=== PATIENT | female | born 1955 | race Two or more races ===

== ENCOUNTER 2017-07-26 08:28 | Day surgery (SDC) | payer MEDICAID ==
[2017-07-26] VITALS (9 sets, daily range): BP systolic 115–130; BP diastolic 56–78
[~2017-07-26] VITALS: Ht 157.5 cm; Wt 72.6 kg
[~2017-07-26 08:28] MED LIST: CALCIUM CITRATE PO; FISH OIL500 MG PO; FLAX OIL1000 MG PO; MULTIVITAMINS1 EAC8 PO; TAMOXIFEN CITRA10 MG PO; TENORMIN25 MG PO; VIT D3 PO
[2017-07-26] MEDS ORDERED: Lidocaine 1% MPF 10mg/ml 5ml ONE (08:29)
[2017-07-26] MEDS ORDERED: Propofol 200mg/20ml IV ONE (08:29)
[2017-07-26] MEDS ORDERED: NS 500ML ONE (08:29)
--- NOTE | 2017-07-26 08:47 | Anethesia Preoperative Eval ---
Anesthesia Pre-op PMH/ROS General Date of Evaluation: Jul 26, 2017 Time of Evaluation: 08:45 Anesthesiologist: juan ASA Score: ASA 3 Mallampati Score Class I : Soft palate, uvula, fauces, pillars visible Class II: Soft palate, uvula, fauces visible Class III: Soft palate, base of uvula visible Class IV: Only hard plate visible Mallampati Classification: Class II Surgeon: alan Diagnosis: gerd/colon screening Surgical Procedure: egd/colonoscopy Anesthesia History: none - egd/colonoscopy Social History: smoking - nonsmoker, alcohol use Family History: no anesthesia problems Allergies: Coded Allergies: No Known Allergies (Unverified , 05/18/12) Medications: see eMAR Past Medical History Cardiovascular: Reports: HTN, arrhythmia Gastrointestinal/Genitourinary: Reports: GERD, other - gastritis Neurologic/Psychiatric: Reports: depression/anxiety Hematology/Immune: Reports: other - breast cancer Anesthesia Pre-op Phys. Exam Physician Exam Last Vital Signs Date Time Temp Pulse Resp B/P (MAP) Pulse Ox O2 Delivery O2 Flow Rate FiO2 07/26/17 09:29 97.5 68 18 120/78 97 Room Air 97.5 Constitutional: NAD Neurologic: CN 2-12 intact Cardiovascular: RRR Respiratory: CTA Gastrointestinal: S/NT/ND Airway Exam Mallampati Score: Class II MO: limited Neck: supple TMD: 2fb ROM: full Teeth: intact Anesthesia Pre-op A/P Studies Pre-op Studies: EKG - nsr Risk Assessment & Plan Assessment: asa3 Plan: mac Status Change Before Surgery: No Pre-Antibiotics Drug: ANGELA Thomas Jul 26, 2017 08:47
[2017-07-26] MEDS ORDERED: Atropine Inj 1mg/10ml Syr IV PRN (09:00)
[2017-07-26] MEDS ORDERED: Midazolam 2mg/2ml Inj IVP PRN (09:00)
[2017-07-26] MEDS ORDERED: DiphenhydrAMINE 50mg/ml Inj IVP PRN (09:00)
[2017-07-26] MEDS ORDERED: fentaNYL 100 mcg/2 mL IV PRN (09:00)
[2017-07-26] MEDS ORDERED: LIPITOR20 MG ORAL (09:33)
--- NOTE | 2017-07-26 10:15 | Pre-Procedure Note/Attestation ---
Pre-Procedure Note/Attestation Complete Prior to Procedure Planned Procedure: not applicable Procedure Narrative: egd/colonoscopy Indications for Procedure Pre-Operative Diagnosis: GERD, screening colon Attestation I attest that I discussed the nature of the procedure; its benefits; risks and complications; and alternatives (and the risks and benefits of such alternatives ), prior to the procedure, with the patient (or the patient's legal medicare sales representative). I attest that, if there was a reasonable possibility of needing a blood transfusion, the patient (or the patient's legal medicare sales representative) was given the [facility] standardized written summary, pursuant to the [employer] [place] Blood Safety Act ([place] Health and Safety Code # 1645, as amended). I attest that I re-evaluated the patient just prior to the surgery and that there has been no change in the patient's H&P, except as documented below: JOSE GALE Jul 26, 2017 10:15
--- NOTE | 2017-07-26 10:16 | Short Stay Surgery H&P ---
History of Present Illness History of Present Illness Chief Complaint screening colon GERD HPI Micki Franklin is a 62 year old female who was admitted on for Gerd/Colon Screening Patient History Allergies: Coded Allergies: No Known Allergies (Unverified , 05/18/12) PAST MEDICAL HISTORY: (1) GERD (gastroesophageal reflux disease) (2) HTN (hypertension) (3) Gastritis (4) Use of tamoxifen (Nolvadex) Past Surgeries: Social History: Medication History Scheduled Atenolol (Tenormin), 25 MG PO DAILY, (Reported) Atorvastatin Calcium* (Lipitor*), 20 MG ORAL BEDTIME, (Reported) Flaxseed Oil (Flax Oil), MG PO BID, (Reported) Multivitamin With Minerals (Multivitamins With Minerals*), 1 EACH PO DAILY, ( Reported) [place]-3 Fatty Acids (Fish Oil), MG PO BID, (Reported) [Calcium Citrate], 600 MG PO BID, (Reported) [Vit D3], PO BID, (Reported) Discontinued Medications Tamoxifen Citrate* (Nolvadex*), MG PO DAILY, (Reported) Discontinued Reason: Pt stopped taking med Review of Systems Cardiovascular: Reports: no symptoms Respiratory: Reports: no symptoms Skeletal: Reports: no symptoms Gastrointestinal: Reports: gastro esophageal reflux disease Genitourinary: Reports: no symptoms Neurologic: Reports: no symptoms Endocrine: Reports: no symptoms Hematologic: Reports: no symptoms Physical Exam Vital Signs Last Vital Signs Date Time Temp Pulse Resp B/P (MAP) Pulse Ox O2 Delivery O2 Flow Rate FiO2 07/26/17 09:29 97.5 68 18 120/78 97 Room Air 97.5 Skin: normal HENT: normal Heart: normal Lungs: normal Abdomen: normal Extremities: normal Plan Plan of Care esophagogastroduodenoscopy and colonoscopy Final Diagnosis: Attestation Are the patient's medical conditions optimized for surgery? Attestation Response: yes JOSE GALE Jul 26, 2017 10:16
--- NOTE | 2017-07-26 10:56 | Endoscopy Procedure Note ---
Endoscopy Procedure Note General Indication for Procedure: gerd, screening colon Procedures Performed: EGD, colonoscopy Operative Findings/Diagnosis: 3 polyps, gastritis Specimen: yes Pt Tolerated Procedure Well: Yes Estimated Blood Loss: none Anesthesia Anesthesiologist: komal Anesthesia: MAC Inserted Devices Implant(s) used?: No Quality Quality of Bowel Preparation: Good Did scope reach the cecum?: Yes Was there any complications?: No GI Core Measures 50 yrs or older w/o bx or poly: No 10yrs. F/U not recommended: Yes If not recommended, why?: Above average risk 10 yrs. F/U needed: Yes 18 years or older w/prev. colo: No JOSE GALE Jul 26, 2017 10:56
--- NOTE | 2017-07-26 12:15 | Procedure Note ---
DATE OF PROCEDURE: 07/26/2017 SURGEON: Biju Campoverde M.D. ANESTHESIOLOGIST: Dr. Jay. PROCEDURE: Upper endoscopy with biopsy and colonoscopy with snare polypectomy and biopsy. ANESTHESIA: Per Dr. Jay. INSTRUMENT: Olympus adult flexible upper endoscope and colonoscope. INDICATION: Screening colonoscopy, chronic GERD. The procedure, risks, benefits, and possible consequences, including hemorrhage, aspiration, perforation and infection, and alternative treatments, were explained to the patient/legal guardian by Dr. Biju Campoverde and the patient/legal guardian understood and accepted these risks. DESCRIPTION OF PROCEDURE: After informed consent was obtained and the patient was adequately sedated, Olympus upper endoscope was advanced from mouth into the second portion of duodenum and retroflexion performed in the stomach. The patient had evidence of mildly atrophic gastritis. Biopsy from body and antrum was obtained to rule out H. pylori infection. There was suggestion of may be a small hiatal hernia, may be 1 or 2 cm max. No evidence of any esophagitis. No esophageal mass. At this time, the scope was removed and patient was turned over for colonoscopy. First, rectal exam was performed, which was normal. Then, the scope was advanced from the rectum into the cecum documented by the appendiceal orifice, ileocecal valve, and upper quadrant palpation. Quality of prep was very good. The patient had one 4-mm polyp in the transverse colon removed with cold snare polypectomy technique. Right next to this polyp in transverse colon, there was a flattened area with some depression in the lining, this is suspicious for flat polyp. Biopsy from this area was obtained and this area was tattooed for future references. There was another prominent fold in the sigmoid colon. The prominent fold was biopsied. Next to this prominent fold also was a small polyp may be roughly about 3 mm, removed with cold biopsy forceps technique. The patient also had one small polyp in the rectum which was removed with cold biopsy forceps technique. Retroflexion of rectum showed no evidence of any obvious large internal hemorrhoids. SUMMARY OF FINDINGS: 1. Atrophic gastritis, status post biopsy. 2. Small hiatal hernia, may be 1 or 2 cm. 3. Three colonic polyps, removed. 4. A flat-looking polyp in transverse colon, status post biopsy and tattoo. 5. A prominent fold in the sigmoid colon, status post biopsy. RECOMMENDATIONS: Follow up biopsy results and treat accordingly. Biju Campovered M.D. DR: Laquita JOB#: [id number] CC:
--- NOTE | 2017-07-26 13:41 | Immediate Post-Op Evaluation ---
Immediate Post-Op Evalulation Immediate Post-Op Evalulation Procedure: egd/colonoscopy Date of Evaluation: Jul 26, 2017 Time of Evaluation: 11:07 IV Fluids: 450ml 0.9ns Blood Products: none Estimated Blood Loss: negligible Blood Pressure Systolic: 127 Blood Pressure Diastolic: 71 Pulse Rate: 73 Respiratory Rate: 18 O2 Sat by Pulse Oximetry: 99 Temperature (Fahrenheit): 97.0 Pain Score (1-10): 0 Nausea: No Vomiting: No Complications none Patient Status: awake, reacts, patent Hydration Status: adequate Drug: ANGELA Thomas Jul 26, 2017 13:41
--- NOTE | 2017-07-26 13:42 | 48 Hour Post Anesthesia Eval ---
Post Anesthesia Evaluation Procedure: egd/colonoscopy Date of Evaluation: Jul 26, 2017 Time of Evaluation: 11:09 Blood Pressure Systolic: 130 0: 77 Pulse Rate: 77 Respiratory Rate: 18 Temperature (Fahrenheit): 97.0 O2 Sat by Pulse Oximetry: 100 Airway: patent Nausea: No Vomiting: No Pain Intensity: 0 Hydration Status: adequate Cardiopulmonary Status: stable Mental Status/LOC: patient returned to baseline Post-Anesthesia Complications: none Follow-up care needed: N/A ANGELA PETERSON Jul 26, 2017 13:42
--- NOTE | 2017-07-27 18:38 | Cardiology Report ---
APPROVED REPORT EKG Measurement Heart [id number] Normal sinus rhythm Normal ECG
== END 2017-07-26 13:00 | disposition home or self-care (01) ==
LOC: GAS 08:28
DX: Z12.11 Encounter for screening for malignant neoplasm of colon (principal); K21.9 Gastro-esophageal reflux disease without esophagitis; K29.40 Chronic atrophic gastritis without bleeding; K44.9 Diaphragmatic hernia without obstruction or gangrene; K63.5 Polyp of colon; I10 Essential (primary) hypertension; F32.9 Major depressive disorder, single episode, unspecified; F41.9 Anxiety disorder, unspecified; Z85.3 Personal history of malignant neoplasm of breast
CPT/HCPCS: 43239; 45380; 93005; J2704; J7040; Z7512; 94003; 94150